=== PATIENT | female | born 1985 | race Caucasian/White ===

== ENCOUNTER → 2021-05-15 11:21 | Outpatient (CLI) | payer OTHER, MEDICAID, SELFPAY ==
[2021-05-15 19:28] LABS: Add Manual Diff / Slide Review NO; Basophils Absolute Auto 0 /uL (0-100); Basophils Percent Auto 0.6 % (0-2); Eosinophils Absolute Auto 100 /uL (0-450); Eosinophils Percent Auto 1.2 % (2-4); Hematocrit 41.7 % (36-46); Hemoglobin 13.8 g/dL (12.0-16.0); Lymphocytes Absolute Auto 1200 /uL (1100-4500); Lymphocytes Percent Auto 28.1 % (25-40); Mean Corpuscular HGB Conc 33.1 % (30-36); Mean Corpuscular Hemoglobin 29.2 PG (26-34); Mean Corpuscular Volume 88.3 fL (80-100); Monocytes Absolute Auto 300 /uL (0-900); Monocytes Percent Auto 5.9 % (3-14); Neutrophils Absolute Auto 2800 /uL (1500-7000); Neutrophils Percent Auto 64.2 % (50-75); Platelet Count 192 X10^3/uL (150-400); Red Blood Cell Count 4.72 X10^6/uL (4.0-5.2); Red Cell Distribution Width 12.9 % (11.6-14.8); White Blood Cell Count 4.4 X10^3/uL (4.5-11.0)
[2021-05-15 19:29] LABS: Alanine Aminotransferase 20 IU/L (<35); Albumin 4.4 g/dL (3.5-5.0); Albumin Globulin Ratio 1.6 (1.0-2.8); Alkaline Phosphatase 48 U/L (38-126); Aspartate Aminotransferase 30 IU/L (14-36); Bilirubin Total 0.7 mg/dL (0.2-1.3); Blood Urea Nitrogen 12 mg/dL (7-17); Calcium 9.6 mg/dL (8.4-10.2); Carbon Dioxide 28 mmol/L (22-32); Chloride 104 mmol/L (98-107); Estimated Glomerular Filt Rate > 60.0 mL/min (>60); Globulin 2.8 g/dL (1.7-4.1); Glucose 97 mg/dL (70-100); HEMOLYSIS < 15 (0-50); Potassium 4.1 mmol/L (3.4-5.1); Sodium 141 mmol/L (137-145); Total Protein 7.2 g/dL (6.3-8.2)
[2021-05-15 19:42] LABS: Follicle Stimulating Hormone 45.5 mIU/mL; Free T3, Triiodothyronine Free 3.41 pg/mL (2.77-5.27); Luteinizing Hormone 19.1 mIU/mL
[2021-05-15 19:49] LABS: Appearance Urine UA SL CLOUDY; Bilirubin Urine UA NEGATIVE (NEGATIVE); Color Urine UA YELLOW; Glucose Urine UA NEGATIVE (Negative); Ketones Urine UA 1+ (NEGATIVE); Leukocyte Esterase Urine UA NEGATIVE (NEGATIVE); Nitrite Urine UA NEGATIVE (Negative); Occult Blood Urine UA NEGATIVE (Negative); Protein Urine UA TRACE (Negative); Specific Gravity Urine UA 1.025 (1.000-1.035); Urobilinogen Urine UA 0.2 E.U./dL (0.2)
[2021-05-15 19:52] LABS: TSH w/ Reflex to FT4 1.04 uIU/mL (0.47-4.68)
[2021-05-15 20:21] LABS: pH Urine UA 5.5 (4.5-8.0)
[2021-05-15 20:23] LABS: Bacteria Urine Occasional (0-1); Culture Indicated Urine Cult Not Indicated; Mucus Urine 1+ (Negative); RBC Urine 1-5/HPF (0-5/HPF); Squamous Epithelial Cell Urine 1-5 /HPF (0-5/HPF); Transitional Epi Cells Urine 1-5/HPF (0-5/HPF); WBC Urine 1-5/HPF (0-5/HPF)
== END ==
PROVIDERS: PCP Physician Assistant Medical; Visit Provider Physician Assistant Medical
DX: E28.8 Other ovarian dysfunction (principal); Z79.890 Hormone replacement therapy; Z13.0 Encounter for screening for diseases of the blood and blood-forming organs and certain disorders involving the immune mechanism; Z13.1 Encounter for screening for diabetes mellitus
CPT/HCPCS: 80053; 81001; 83001; 83002; 84443; 84481; 85025

== ENCOUNTER → 2021-08-21 13:53 | Outpatient (CLI) | payer OTHER, MEDICAID, SELFPAY ==
[2021-08-29 01:51] LABS: Anti Mullerian Hormone <0.015 ng/mL (.)
== END ==
PROVIDERS: PCP Physician Assistant Medical; Visit Provider Obstetrics & Gynecology
DX: E28.39 Other primary ovarian failure (principal)
CPT/HCPCS: 82397

== ENCOUNTER → 2021-10-02 13:11 | Outpatient (CLI) | payer OTHER, MEDICAID, SELFPAY ==
[2021-10-02 19:00] LABS: Erythrocyte Sedimentation Rate 6 MM/HR (0-20)
[2021-10-02 19:21] LABS: High Sensitivity CRP - Cardiac 0.8 mg/L (1.0-3.0)
[2021-10-02 19:28] LABS: Prolactin 11.1 ng/mL (3.0-18.6)
[2021-10-02 19:44] LABS: Testosterone 27.7 ng/dL (5.71-77.0)
[2021-10-02 20:25] LABS: Follicle Stimulating Hormone 86.3 mIU/mL; Luteinizing Hormone 39.3 mIU/mL
[2021-10-02 20:41] LABS: Estradiol, Total 10.8 pg/mL
[2021-10-04 14:08] LABS: Endomysial AB IGA Negative (Negative)
== END ==
PROVIDERS: Internal Medicine Cardiovascular Disease; PCP Physician Assistant Medical
DX: E28.39 Other primary ovarian failure (principal); Z76.89 Persons encountering health services in other specified circumstances; N97.9 Female infertility, unspecified
CPT/HCPCS: 82670; 83001; 83002; 84146; 84403; 85651; 86140; 86255

== ENCOUNTER → 2023-10-09 16:18 | Outpatient (CLI) | payer OTHER, MEDICAID, SELFPAY ==
[2023-10-09 18:19] LABS: Urine N gonorrhoeae NOT DETECTED
[2023-10-09 18:27] LABS: Urine Chlamydia NOT DETECTED
== END ==
PROVIDERS: PCP Physician Assistant Medical; Visit Provider Specialist
DX: O09.819 Supervision of pregnancy resulting from assisted reproductive technology, unspecified trimester (principal)
CPT/HCPCS: 87491; 87591

== ENCOUNTER → 2023-11-02 14:46 | Outpatient (CLI) | payer OTHER, MEDICAID, SELFPAY ==
[2023-11-02 15:38] LABS: Add Manual Diff / Slide Review NO; Basophils Absolute Auto 0 /uL (0-100); Basophils Percent Auto 0.4 % (0-2); Eosinophils Absolute Auto 100 /uL (0-450); Eosinophils Percent Auto 0.9 % (2-4); Hematocrit 32.4 % (36-46); Hemoglobin 10.7 g/dL (12.0-16.0); Lymphocytes Absolute Auto 1300 /uL (1100-4500); Lymphocytes Percent Auto 11.2 % (25-40); Mean Corpuscular Volume 81.7 fL (80-100); Monocytes Absolute Auto 500 /uL (0-900); Monocytes Percent Auto 4.4 % (3-14); Neutrophils Absolute Auto 9600 /uL (1500-7000); Neutrophils Percent Auto 83.1 % (50-75); Platelet Count 367 X10^3/uL (150-400); Red Blood Cell Count 3.97 X10^6/uL (4.0-5.2); Red Cell Distribution Width 13.6 % (11.6-14.8); White Blood Cell Count 11.5 X10^3/uL (4.5-11.0)
[2023-11-02 16:56] LABS: HIV 1 & 2 Ab/Ag 4th Gen Combo NEGATIVE (NEGATIVE); Hep C Virus Ab w/Reflex Quant NEGATIVE s/c (NEGATIVE); Hepatitis B Surface Antigen NEGATIVE s/c (NEGATIVE); Rubella Antibody IgG 49.8 IU/mL (>15)
[2023-11-03 08:28] LABS: RPR Screen Non Reactive (Non Reactive)
[2023-11-03 12:02] LABS: Varicella IgG Antibody 2227 index (Immune >165)
== END ==
PROVIDERS: Specialist; PCP Physician Assistant Medical; Referring Provider Obstetrics & Gynecology; Visit Provider Obstetrics & Gynecology
DX: O09.819 Supervision of pregnancy resulting from assisted reproductive technology, unspecified trimester (principal); Z3A.16 16 weeks gestation of pregnancy
CPT/HCPCS: 36415; 80055; 82105; 86787; 86803; 86850; 86900; 86901; 87389

== ENCOUNTER → 2023-12-02 14:12 | Outpatient (CLI) | payer OTHER, MEDICAID, SELFPAY ==
--- NOTE | 2023-12-02 14:13 | DI.US.S_ITS ---
PROCEDURE: US OB >= 14 WEEKS FETUS INDICATIONS: 20 Week Anatomy Scan OUTSIDE/PRIOR DATING DATA: Last menstrual period (LMP): Unknown. LMP-based estimated date of delivery (MIRANDA): Unknown First dating scan (date and location): 09/12/2023 Estimated date of delivery (MIRANDA) from first dating scan: 04/22/2024 Working MIRANDA: 04/13/2024 TECHNIQUE: Real-time scanning was performed of the fetus, with image documentation and biometric measurements. Endovaginal scanning: No COMPARISON: None. FINDINGS: General: A single living intrauterine gestation is present. Presentation: Breech. Placenta: Placental position is posterior , without previa. Relationship between placental edge and internal os is not well visualized Amniotic fluid index: 10.1 cm, normal range is 5-24 cm. Single deepest vertical pocket is 3.4 cm. heart rate: 132 beats per minute. Maternal cervical canal: 4.1 cm long. Normal lower limit is 2.5 cm. biometrics: Biparietal diameter: 4.5 cm, 19 week 4 day Head circumference: 17.2 cm, 19 week 6 day Abdominal circumference: 17.2 cm, 22 week 1 day Femur length: 3.5 cm, 21 week 1 day Clinically estimated gestational age: 21 week 0 day Composite gestational age from present scan: 20 week 5 day Estimated weight and percentile: 423 g, 68 percentile Anatomic survey: Neuro: Ventricles are non-dilated at less than 10 mm. Cisterna magna is normal at 3-11 mm. Cerebellum is normal in size and morphology. Nuchal skin fold: Normal at less than 6 mm between 14-21 weeks gestational age. Face: Nose and lips, facial profile are normal. Spine: No evidence for spina bifida. Heart: 4-chambered heart is present, with normal ventricular outflow tracts. Diaphragm: Diaphragm is intact. Stomach: Left-sided stomach is present. Kidneys: No hydronephrosis. Normal is less than 5 mm in 2nd trimester, less than 7 mm in 3rd trimester. Cord: 3-vessel cord has orthotopic insertion. Bladder: Normal in size. Extremities: All 4 extremities identified. IMPRESSION: Single live intrauterine consistent with a 20 week 5 day gestation by current ultrasound. Normal anatomic survey. Inferior placental edge and internal os not well visualized on the current exam. Attention on follow-up. Approved by: Sivakumar Morales M.D. on 12/02/2023 at 17:01
== END ==
LOC: US 14:13
PROVIDERS: PCP Physician Assistant Medical; Referring Provider Obstetrics & Gynecology; Visit Provider Obstetrics & Gynecology
DX: Z34.02 Encounter for supervision of normal first pregnancy, second trimester (principal); Z3A.20 20 weeks gestation of pregnancy
CPT/HCPCS: 76811

== ENCOUNTER → 2023-12-30 09:51 | Outpatient (CLI) | payer OTHER, MEDICAID, SELFPAY ==
[2023-12-30 12:00] LABS: Hematocrit 29.5 % (36-46); Hemoglobin 9.6 g/dL (12.0-16.0)
[2023-12-30 12:35] LABS: GTT (PREG) 1 Hour PP 50gm Dose 131 mg/dL (76-139)
== END ==
PROVIDERS: PCP Physician Assistant Medical; Referring Provider Obstetrics & Gynecology; Visit Provider Obstetrics & Gynecology
DX: Z34.82 Encounter for supervision of other normal pregnancy, second trimester (principal); Z3A.26 26 weeks gestation of pregnancy
CPT/HCPCS: 36415; 82950; 85014; 85018

== ENCOUNTER 2024-01-18 15:17 | Observation (INO) | payer OTHER, MEDICAID, SELFPAY ==
--- NOTE | 2024-01-18 16:23 | DI.MRI.S_ITS ---
PROCEDURE: MR ABDOMEN LIVER PROTOCOL INDICATIONS: 11cm mass noted on US-pt is 27weeks TECHNIQUE: Coronal HASTE, axial 2D FLASH in- and [id number]; axial breath-hold T2 FSE. Dynamic axial VIBE during the administration of contrast; post-contrast coronal VIBE or 2D FLASH with fat saturation from the hepatic dome to the iliac crests. Optional diffusion weighted imaging and ADC may be performed. COMPARISON: Outside Facility, [facility], US ABDOMEN LIMITED, 01/18/2024, 10:46. FINDINGS: Image quality: Diagnostic. Contrast was not administered due to patient's status. Lung bases: No pleural or pericardial effusion. Liver: Hepatomegaly and hepatic steatosis. No dominant liver lesions seen without contrast. Gallbladder: No stones, wall thickening, or pericholecystic fluid. Biliary ducts: No biliary dilation. Pancreas: 1.1 cm round cystic, homogeneously T2 hyperintense cyst in the proximal tail of the pancreas. Uncertain connection to the pancreatic duct which is nondilated. Spleen: Size is within normal limits. Adrenal Glands: No adrenal nodules. Kidneys and Ureters: Both kidneys are normal size. Arising from the lateral mid to lower pole of the right kidney, there is a mass, isointense to renal cortex on T1 and heterogeneously hypointense on T2 measuring roughly 10.5 x 6.2 by 8.4 cm. There are no dominant cystic or adipose components. The margins are fairly well circumscribed and there is a fat plane between the liver and this mass. It appears to remain within Gerota's fascia and there is no infiltration into the posterior body wall. The right renal collecting system appears normal, nondilated although minimally more prominent compared to the left. There is no hydroureter visible. Stomach and Bowel: Stomach and visible bowel loops are within normal limits. Peritoneum: No abnormal intraperitoneal fluid. No free air. Ventral Wall: No hernia. Abdominal Nodes: No retroperitoneal or mesenteric adenopathy by size criteria. Vessels: Aorta and inferior vena cava are normal in size. Bones: No aggressive osseous abnormality. There is an incompletely imaged gravid uterus. Posterior placenta. IMPRESSION: 10.5 cm solid-appearing right renal mass with fairly well-defined margins. Differential diagnosis includes both benign and malignant etiologies although there is no associated adenopathy or significant adjacent fluid. Tissue acquisition is recommended. Discussed with Dr. Breaux at 19:45 hours. Dictated by: Jaky Lmoas M.D. on 01/18/2024 at 19:31 Approved by: Jaky Lomas M.D. on 01/18/2024 at 19:49
[2024-01-18 20:58] LABS: Alanine Aminotransferase 19 IU/L (<35); Albumin 3.6 g/dL (3.5-5.0); Albumin Globulin Ratio 1.1 (1.0-2.8); Alkaline Phosphatase 108 U/L (38-126); Aspartate Aminotransferase 25 IU/L (14-36); BUN Creatinine Ratio 17.9 (6-22); Bilirubin Total 0.4 mg/dL (0.2-1.3); Blood Urea Nitrogen 10 mg/dL (7-17); Carbon Dioxide 25 mmol/L (22-32); Chloride 106 mmol/L (98-107); Estimated Glomerular Filt Rate > 60 mL/min (>60); Globulin 3.4 g/dL (1.7-4.1); Glucose 104 mg/dL (70-100); HEMOLYSIS < 15 (0-50); Potassium 3.9 mmol/L (3.4-5.1); Sodium 135 mmol/L (137-145)
== END 2024-01-18 21:05 | disposition home or self-care (01) ==
LOC: LABOR 15:19
PROVIDERS: Admitting Provider Obstetrics & Gynecology; PCP Physician Assistant Medical; Referring Provider Obstetrics & Gynecology; Visit Provider Obstetrics & Gynecology
DX: O09.812 Supervision of pregnancy resulting from assisted reproductive technology, second trimester (principal); O26.892 Other specified pregnancy related conditions, second trimester; N28.89 Other specified disorders of kidney and ureter; Z3A.27 27 weeks gestation of pregnancy
CPT/HCPCS: 59050; 74183; 80053; G0378; G0379

== ENCOUNTER 2024-01-24 00:27 | Outpatient (CLI) | payer OTHER, MEDICAID, SELFPAY ==
[2024-01-24 00:35] VITALS: BP 167/77; PULSE 80; RESP 19; TEMP 36.4; O2SAT 98; BMI 28.2
--- NOTE | 2024-01-24 00:37 | ED_ITS ---
HPI - Abdominal Pain General Chief Complaint: Abdominal Pain Stated Complaint: Upper ABD Pain, 28 wks Time Seen by Provider: 01/24/24 00:34 History of Present Illness HPI narrative: 38-year-old female resident of [facility] has current 28 weeks gestation, status post IVF procedure [place], subsequent ultrasound evaluation showed single developing live fetus, due date per patient 04/13/2024, recent right upper quadrant discomfort, ultrasound finding at [facility] of right renal mass last Thursday, MRI abdomen performed [facility] here same day to further delineate the mass, awaiting referral to tertiary [place] specialists, worsening right upper quadrant discomfort this evening, atraumatic, called her area activity therapist Dr. Breaux who happened to be on-call, who advised patient to be transported here, they were able to get on late [place], arriving POV to [facility]. She denies vaginal bleeding, denies leaking of fluid, does feel the baby moving. Pain is worse with inspiration. No pain swelling to legs. Related Data Home Medications Medication Instructions Recorded Confirmed aspirin 81 mg tablet,delayed 81 mg PO DAILY 10/01/23 01/24/24 release folic acid 1 mg tablet 4 mg PO DAILY 10/01/23 01/24/24 mecobalamin (vitamin B12) 1,000 1,000 mcg PO DAILY 10/01/23 01/24/24 mcg lozenges vitamin-ferrous sulfate 1 tab PO DAILY 10/01/23 01/24/24 27 mg iron-folic acid 0.8 mg tablet pyridoxine (vitamin B6) 100 mg 100 mg PO DAILY 10/01/23 01/24/24 tablet Allergies Allergy/AdvReac Type Severity Reaction Status Date / Time No Known Drug Allergies Allergy Verified 01/24/24 05:40 Review of Systems Review of Systems Narrative: per HPI Patient History Medical History (Updated 01/24/24 @ 01:29 by Gregory Ramsey MD) Dermatitis, unspecified Elevated BP without diagnosis of hypertension 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) Dermoid cyst of face Problem related to psychosocial circumstances Vaginal discharge Surgical History (Updated 10/01/23 @ 11:16 by Piedad Joseph RN) History of removal of skin mole S/P wisdom tooth extraction S/P dilatation and curettage Social History marital status: number of children: 0 household members: spouse lives independently: Yes caregiver/support person: No housing: house pets and animals: Yes (2 dogs) education level: vocational occupational status: employed current occupational exposures/hazards: Yes (fiber/clothing dyeing) special amador needs: No travel history: recent (domestic only) seatbelt use: always water heater temp set < 120 deg: Yes working smoke detector in home: Yes fire extinguisher in home: Yes carbon monox detector in home: Yes firearms in home: No do you feel safe at home: Yes Smoking Status: Never smoker second hand exposure: No alcohol intake: former (~1-3 glasses wine/week when not ) substance use type: marijuana (agrees not to use while /) during the past year weight has: increased > 10 lbs (related to hormone therapy) well-balanced diet: about half the time daily servings fruits/ve-1 (1-2) caffeine: Yes (0-1 cup coffee in AM) Type(s) of exercise: walking Smoking Status: Never smoker Exam Narrative Exam Narrative: GENERAL: Well-developed patient, in mild distress. HEAD: Atraumatic. Normocephalic. EYES: Pupils equal round and reactive. Extraocular motions intact. No scleral icterus. No injection or drainage. ENT: Nose without bleeding, purulent drainage. Throat without erythema, tonsillar hypertrophy or exudate. Airway patent. NECK: Trachea midline. Non tender CARDIOVASCULAR: Regular rate and rhythm without murmurs, gallops, or rubs. RESPIRATORY: Clear to auscultation. Breath sounds equal bilaterally. No wheezes, rales, or rhonchi. GASTROINTESTINAL: Abdomen soft, non-tender, nondistended. EXTREMITIES: No edema or joint tenderness. BACK: Nontender without deformity or crepitance. No flank tenderness. NEURO: AOx3. Nonfocal neuro exam SKIN: No rash or erythema of visible areas Initial Vital Signs Initial Vital Signs: Vital Signs Temperature 97.6 F 01/24/24 00:35 Pulse Rate 80 01/24/24 00:35 Respiratory Rate 19 01/24/24 00:35 Blood Pressure 167/77 H 01/24/24 00:35 Pulse Oximetry 98 01/24/24 00:35 Oxygen Delivery Method Room Air 01/24/24 00:35 Course Orders Ordered: Discontinued Medications Oxycodone HCl (Oxycodone Ir 5 Mg Tablet) 5 mg PO Q4HR PRN PRN Reason: Pain, Moderate (4-6) Last Admin: 01/24/24 05:05 Dose: 5 mg Documented By: BERNARD Oxycodone/Acetaminophen (Oxycodone/Apap 5/325 Prepack) 1 bottle MISC DIRECTED ONE Stop: 01/24/24 05:13 Vital Signs Vital signs: Vital Signs - 8 hr 01/24/24 00:35 Temperature 97.6 F Pulse Rate 80 Respiratory Rate 19 Blood Pressure 167/77 H Pulse Oximetry 98 Oxygen Delivery Method Room Air MDM - Abdominal Pain Lab Data Attestation: I reviewed the patient's lab results. 01/24/24 00:55 01/24/24 00:55 Labs: Lab Results 01/24/24 Range/Units 00:55 WBC 11.7 H (4.5-11.0) X10^3/uL RBC 4.19 (4.0-5.2) X10^6/uL Hgb 10.8 L (12.0-16.0) g/dL Hct 33.2 L (36-46) % MCV 79.4 L (80-100) fL MCH 25.7 L (26-34) PG MCHC 32.4 (30-36) % RDW 19.2 H (11.6-14.8) % Plt Count 303 (150-400) X10^3/uL Neut % (Auto) 77.9 H (50-75) % Lymph % (Auto) 16.2 L (25-40) % [place] % (Auto) 4.2 (3-14) % Eos % (Auto) 1.0 L (2-4) % Baso % (Auto) 0.7 (0-2) % Neut # (Auto) 9100 H (3132-1899) /uL Lymph # (Auto) 1900 (7497-0131) /uL [place] # (Auto) 500 (0-900) /uL Eos # (Auto) 100 (0-450) /uL Baso # (Auto) 100 (0-100) /uL Sodium 137 (137-145) mmol/L Potassium 3.6 (3.4-5.1) mmol/L Chloride 107 (98-107) mmol/L Carbon Dioxide 24 (22-32) mmol/L BUN 9 (7-17) mg/dL Creatinine 0.63 (0.52-1.04) mg/dL Estimated GFR > 60 (>60) mL/min BUN/Creatinine Ratio 14.3 (6-22) Glucose 98 (70-100) mg/dL Calcium 9.1 (8.4-10.2) mg/dL Total Bilirubin 0.4 (0.2-1.3) mg/dL AST 37 H (14-36) IU/L ALT 28 (<35) IU/L Alkaline Phosphatase 121 (38-126) U/L Total Protein 6.9 (6.3-8.2) g/dL Albumin 3.6 (3.5-5.0) g/dL Globulin 3.3 (1.7-4.1) g/dL Albumin/Globulin Ratio 1.1 (1.0-2.8) Lipase 41 (23-300) U/L Point of care testing: Urine Dip Bedside Urine Glucose Negative Bedside Urine Bilirubin - Negative Bedside Urine Ketone - Negative Urine Specific [place] 1.015 Bedside Urine Occult Blood - Negative Bedside Urine pH 6.0 Bedside Urine Protein - Negative Bedside Urine Urobilinogen - Negative Bedside Urine Nitrite - Negative Bedside Urine Leukocytes - Negative Esterase Imaging Data Ultrasound OB pelvis: Radiologist's Impression: [place] [address] Ultrasound Report Signed Patient: Kathrin Reyes MR#: [id number] : 1985 Acct:[id number] Age/Sex: 38 / F Date of Service: 01/24/24 Loc: ED Accession Number: [id number] Procedure: US OB >= 14 weeks Fetus Ordering Provider: Gregory Ramsey MD PROCEDURE: US OB >= 14 WEEKS FETUS INDICATIONS: abdominal pain, 28 weeks gestation OUTSIDE/PRIOR DATING DATA: Not currently available. TECHNIQUE: Real-time scanning was performed of the fetus, with image documentation and biometric measurements. Limited study at clinician request. Endovaginal scanning: Not needed. COMPARISON: [facility], , US OB >= 14 WEEKS FETUS, 12/30/2023, 14:19. [facility], , US OB >= 14 WEEKS FETUS, 12/02/2023, 14:29. FINDINGS: General: A single living intrauterine gestation is present. Presentation: Vertex. Placenta: Placental position is posterior fundal , without previa. Amniotic fluid index: 9.5 cm, normal range is 5-24 cm. Single deepest vertical pocket is 5.2 cm. heart rate: 144 beats per minute. Maternal cervical canal: 3.7 cm long. Normal lower limit is 2.5 cm. IMPRESSION: Limited study at clinician request. Single living intrauterine gestation. Vertex presentation, posterior fundal placenta, normal amniotic fluid volume. No placental abnormality found. We strive to produce accurate, complete, and clear reports of imaging services. To assist us in improving patient care, this report was composed using standard report templates and voice recognition software. Therefore, it may contain abnormal punctuation, insertions and/or omissions. Occasional wrong-word or sound-alike substitutions may occur. Though we review the report and make efforts to correct it, we do recommend that the report be read carefully in proper context to recognize any text inaccuracies. Dictated by: John Saravia M.D. on 01/24/2024 at 2:08 Approved by: John Saravia M.D. on 01/24/2024 at 2:11 Right upper quadrant abdomen ultrasound: Radiologist's Impression: [place] [address] Ultrasound Report Signed Patient: Kathrin Reyes MR#: [id number] : 1985 Acct:[id number] Age/Sex: 38 / F Date of Service: 01/24/24 Loc: ED Accession Number: [id number] Procedure: US abdomen limited Ordering Provider: Gregory Ramsey MD PROCEDURE: US ABDOMEN LIMITED INDICATIONS: RUQ abd pain, 28 weeks gest TECHNIQUE: Real-time scanning was performed of the abdominal and retroperitoneal organs, with image documentation. COMPARISON: [facility], , MR ABDOMEN LIVER PROTOCOL, 01/18/2024, 18:42. FINDINGS: Liver: Liver is mildly prominent in size at 19.3 cm craniocaudad, and homogeneous in echotexture. Gallbladder: No gallstones. No wall thickening. No pericholecystic edema. Negative sonographic Montano's sign. Relatively contracted gallbladder. Biliary ducts: Intrahepatic bile ducts are non-dilated. Extrahepatic bile duct caliber appears normal. Pancreas: Visualized portions of the pancreas are sonographically normal. Miscellaneous: No free abdominal fluid. There is a previously identified large mass emanating from the anterior cortex of the right kidney measuring up to 11.3 x 6.0 x 8.5 cm. This likely has not changed given differences in technique and sites of measurement with reference to the prior ultrasound and MRI recent studies. IMPRESSION: Please also refer to prior MRI and ultrasound studies documenting the large abdominal mass in close proximity to or emanating from the right kidney. No definite change considering differences in measurement techniques. Dictated by: John Saravia M.D. on 01/24/2024 at 1:51 Approved by: John Saravia M.D. on 01/24/2024 at 1:56 MDM Narrative Medical decision making narrative: 38-year-old female with right upper quadrant pleuritic abdominal pelvic discomfort, about 28 weeks gestation current , no vaginal bleeding or leaking of fluid, recent diagnosis by ultrasound then MRI of right renal area mass awaiting specialist follow up referral, increasing right upper quadrant pleuritic pain today. DDx consider pulmonary embolus, expanding or hemorrhage of recently diagnosed right renal area mass, biliary colic, cholecystitis, pancreatitis, PUD, UTI, lower lobe pneumonia, pulmonary embolus, chest wall discomfort, other. Obstetrics gynecology Dr. Breaux on-call had phoned earlier, consider workup for pulmonary embolus or other causes, anticipate admission to OB floor depending on results. Patient has no oxygen requirement, no respiratory distress, lungs clear, no tachycardia, no hypoxia. She does have some tenderness that seems reproducible right costal margin midclavicular line, no redness to the skin in that area, no crepitance, no vesicles or skin rash lesions. Ultrasound OB evaluation to evaluate for abruption, ultrasound right upper quadrant also requested, with attention to right retroperitoneal/renal mass known. Keep NPO for now. Records review. MRI abdomen report from 01/18/2024 report review. Impressions: ?10.5 cm solid appearing right renal mass with a fairly well defined margins. Differential diagnosis includes both benign and malignant etiologies although there is no associated adenopathy or significant adjacent fluid. Tissue acquisition is recommended. See radiology report 0140, OB ultrasound sono tech verbal report, [place] live , no obvious placental abruption, normal ALESSANDRO, heart motion 144. Right upper quadrant abdominal ultrasound with attention to right kidney as well, sooner take verbal preliminary report, 13 cm diameter largest dimension solid appearing mass with blood flow adjacent to the right kidney has separate delineation, no free fluid, no septation, no cystic structures, kidney itself parenchymal looks okay, no hydronephrosis or hydroureter. Right upper quadrant ultrasound report over-read by radiologist, large right- sided mass adjacent to right kidney noted, no definite increased size given modality per radiology report. OB ultrasound limited study, no obvious abruption, single live intrauterine noted, normal ALESSANDRO. See radiology report CT angiogram chest ordered, with abdomen renal component requested, as previously discussed with patient's print decorator Dr. Breaux. CT angio chest abdomen. Impressions: ?No pulmonary embolism, aortic dissection or aneurysm. Large enhancing mass within the upper pole/mid pole of the right kidney measuring 8.1 x 5.1 cm in partially imaged. Recommend renal mass protocol CT or MRI for further evaluation. Incidental findings.. See radiology report. 0330, case discussed with OB/Gynecology on-call Dr. Breaux, she accepts patient for admission to [facility] for further observation over the weekend Critical Care Time Critical Care Time Critical Care Time: Yes Total Critical Care Time: 35 Attestation: The high probability of a clinically significant, sudden or life threatening deterioration of the [gynecological, reproductive, abdominopelvic, genitourinary, renal] system(s) required my full and direct attention, intervention and personal management. The aggregate critical care time was [35] minutes. This time is in addition to time spent performing reported procedures but includes the following: [x] Data Review and interpretation [x] Patient assessment and monitoring of vital signs [x] Documentation [x] Medication orders and management Discharge Plan Departure Patient Disposition: Admitted As Inpatient Clinical Impression: Right upper quadrant abdominal pain, Right-sided chest pain, , Mass of right kidney Admit Date/Time: 01/24/24 03:33 Admit Provider: Ida Breaux
[2024-01-24 01:01] LABS: Add Manual Diff / Slide Review NO; Basophils Absolute Auto 100 /uL (0-100); Basophils Percent Auto 0.7 % (0-2); Eosinophils Absolute Auto 100 /uL (0-450); Hematocrit 33.2 % (36-46); Hemoglobin 10.8 g/dL (12.0-16.0); Lymphocytes Absolute Auto 1900 /uL (1100-4500); Lymphocytes Percent Auto 16.2 % (25-40); Mean Corpuscular HGB Conc 32.4 % (30-36); Mean Corpuscular Hemoglobin 25.7 PG (26-34); Mean Corpuscular Volume 79.4 fL (80-100); Monocytes Absolute Auto 500 /uL (0-900); Monocytes Percent Auto 4.2 % (3-14); Neutrophils Absolute Auto 9100 /uL (1500-7000); Neutrophils Percent Auto 77.9 % (50-75); Platelet Count 303 X10^3/uL (150-400); Red Blood Cell Count 4.19 X10^6/uL (4.0-5.2); Red Cell Distribution Width 19.2 % (11.6-14.8); White Blood Cell Count 11.7 X10^3/uL (4.5-11.0)
[2024-01-24 01:14] LABS: Alanine Aminotransferase 28 IU/L (<35); Albumin 3.6 g/dL (3.5-5.0); Albumin Globulin Ratio 1.1 (1.0-2.8); Alkaline Phosphatase 121 U/L (38-126); Aspartate Aminotransferase 37 IU/L (14-36); BUN Creatinine Ratio 14.3 (6-22); Bilirubin Total 0.4 mg/dL (0.2-1.3); Blood Urea Nitrogen 9 mg/dL (7-17); Calcium 9.1 mg/dL (8.4-10.2); Carbon Dioxide 24 mmol/L (22-32); Chloride 107 mmol/L (98-107); Estimated Glomerular Filt Rate > 60 mL/min (>60); Globulin 3.3 g/dL (1.7-4.1); Glucose 98 mg/dL (70-100); HEMOLYSIS < 15 (0-50); Lipase 41 U/L (23-300); Potassium 3.6 mmol/L (3.4-5.1); Sodium 137 mmol/L (137-145); Total Protein 6.9 g/dL (6.3-8.2)
--- NOTE | 2024-01-24 01:47 | DI.CT.S_ITS ---
PROCEDURE: CT ANGIO CHEST ABDOMEN INDICATIONS: right renal mass, preg 28wks, RQ pain, PE study, R renal TECHNIQUE: Precontrast 5 mm thick sections acquired from the lung apices to the iliac crests. After the administration of intravenous contrast, 2.5 mm thick sections again acquired from the lung apices to the iliac crests. 10 mm maximum intensity projection (MIP) oblique sagittal and coronal reformats were then acquired. For radiation dose reduction, the following was used: automated exposure control. COMPARISON: None. FINDINGS: Image quality: Diagnostic. AORTA: No aortic aneurysm. No acute aortic syndrome. CHEST: Lower Neck: No enlarged lymph nodes. Thyroid: No thyroid nodules which require sonographic evaluation. Axillae: No enlarged lymph nodes. Chest Wall: Unremarkable. Bones: Unremarkable. Lungs and Pleura: No pneumothorax or pleural effusions. No consolidation or suspicious nodules. Heart: Heart size is normal. No pericardial effusion. Thoracic Vessels: The aorta and pulmonary arteries demonstrate normal size. Mediastinum and Meeta: No enlarged lymph nodes. Esophagus: No wall thickening. No hiatal hernia. ABDOMEN: Liver: No solid mass. Gallbladder: No radiopaque gallstones or wall thickening. Biliary ducts: No biliary dilation. Pancreas: No ductal dilation. Spleen: Size is within normal limits. Adrenal Glands: No adrenal nodules. Kidneys and Ureters: There is an 8.9 x 6.7 x at least 6.5 cm mass arising from the right kidney which is incompletely imaged. This lesion demonstrates mild heterogeneity but no gross focal fat or calcification. There is mild left hydronephrosis. Kidneys are otherwise normal. Stomach and Bowel: Normal colonic caliber, without significant wall thickening. Peritoneum: No abnormal intraperitoneal fluid. No free air. Ventral Wall: No hernia. Abdominal Nodes: No retroperitoneal or mesenteric adenopathy by size criteria. Vessels: Inferior vena cava is normal in size. Bones: No aggressive osseous abnormality. IMPRESSION: 1. No pulmonary embolism or other acute cardiopulmonary process. 2. Mild right hydronephrosis, likely secondary to gravid state. 3. Large right renal mass, incompletely characterized. Recommend dedicated renal MRI without contrast for further evaluation. Contrasted MRI may be performed when . This is concordant with the preliminary report. Dictated by: Kylah Lam M.D. on 01/24/2024 at 10:04 Approved by: Kylah Lam M.D. on 01/24/2024 at 10:10
[2024-01-24 03:39] VITALS: BP 167/77; PULSE 75; RESP 18; O2SAT 98
[2024-01-24] MEDS: OXYCODONE IR 5 MG TABLET PO (05:05)
== END 2024-01-24 05:28 | disposition home or self-care (01) | DRG 251 ==
LOC: ED 03:33 → LABOR 04:06 → OB 01-26 12:34
PROVIDERS: Emergency Provider Emergency Medicine; PCP Physician Assistant Medical; Referring Provider Emergency Medicine; Visit Provider Obstetrics & Gynecology
DX: O26.893 Other specified pregnancy related conditions, third trimester (principal); R10.11 Right upper quadrant pain; N28.89 Other specified disorders of kidney and ureter; Z3A.28 28 weeks gestation of pregnancy
CPT/HCPCS: 36415; 59025; 71275; 74175; 76705; 76811; 80053; 81003; 83690; 85025; 99284; 99285; Q9967

== ENCOUNTER 2024-02-03 14:20 | Observation (INO) | payer OTHER, MEDICAID, SELFPAY | END 2024-02-03 15:06 | disposition home or self-care (01) | PROVIDERS: Admitting Provider Obstetrics & Gynecology; PCP Physician Assistant Medical; Referring Provider Obstetrics & Gynecology; Visit Provider Obstetrics & Gynecology | DX: Z03.71 Encounter for suspected problem with amniotic cavity and membrane ruled out (principal) | CPT/HCPCS: 59025; 84112; G0378; G0379 ==